=== PATIENT | female | born 1965 | race Caucasian/White ===

== ENCOUNTER → 2016-12-20 | Outpatient (CLI) | payer BC ==
[2014-08-19 19:12] VITALS: BP 156/72
[~2016-12-20] MED LIST: CYCL10TA2 PO; METH4TAB2 PO
--- NOTE | 2016-12-20 17:02 | KCIC ---
MR of the right ankle Indication: Right heel pain. Calcaneal fracture versus plantar fascial tear. Pain for 6 weeks after an injury.. Technique: Standard multiplanar sequences are obtained. Findings: Peroneal tendons: Intact, no dislocation Lateral ligaments: Anterior talofibular, calcaneofibular and posterior talofibular ligaments are intact. Tibiofibular syndesmosis:Intact. Medial tendons: Posterior tibial and flexor tendons are intact. Medial ligaments: No evidence of acute deltoid ligament tear Anterior tendons: Anterior tibial and extensor tendons are intact. Achilles tendon: Intact Plantar aponeurosis: Moderate thickening and increased signal within the central band of the calcaneal attachment. Minimal surrounding edema. No evidence of rupture or detachment. Subtalar joints: Patent Tarsal sinus: Intact Talar Dome: Intact Bones: No bone destruction or acute fracture. Fluid:No significant effusion. Joints: Mild subchondral cystic change and irregularity at the articulation of the navicular with the medial cuneiform compatible with localized degenerative change. Soft tissues: Unremarkable Impression: 1. Moderate plantar fasciitis. No evidence of aponeurotic rupture or detachment. 2. 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 Electronically signed by: Pietro Moss MD (12/20/2016 4:59 PM) [facility]
== END | disposition home or self-care (01) ==
LOC: KCIC MRI 15:41
PROVIDERS: ATTEND Orthopaedic Surgery Foot and Ankle Surgery
DX: M19.071 Primary osteoarthritis, right ankle and foot (principal); M72.2 Plantar fascial fibromatosis
CPT/HCPCS: 73721

== ENCOUNTER 2016-12-26 18:40 | Emergency (ER) | payer BC ==
[~2016-12-26] VITALS: Ht 165.1 cm; Wt 127.0 kg
[2016-12-26 21:40] LABS: BILIRUBIN,URINE NEGATIVE (NEG); GLUCOSE,URINE NEGATIVE (NEG); NITRITE,URINE NEGATIVE (NEG); PROTEIN,URINE NEGATIVE (NEG-TRACE); UROBILINOGEN,URINE 0.2 mg/dL (0.2 mg/dL)
[2016-12-26 21:45] LABS: BACTERIA,URINE 0 /HPF (0-FEW); RBC,URINE 0 /HPF (0-2); SQUAMOUS EPITHELIAL CELL,UR MOD /LPF; WBC,URINE 0 /HPF (0-4)
--- NOTE | 2016-12-26 21:54 | PHYS DOC ---
Past Medical History Past Medical History: Asthma Past Surgical History: Additional Past Surgical Histo: rotator cuff, abdominal tumor removed Alcohol Use: Rarely Drug Use: None Adult General Chief Complaint Chief Complaint: BACK PAIN - NO INJURY HPI HPI Patient is a 51 year old female who presents with complaint of right-sided back pain. Patient states that her pain is been worsening over the past 2 days. The patient states that she recently injured her right foot and has been in a walking boot for several weeks. Patient states she started developing pain along the right side of her back. Patient states that she also has noted pain radiating towards the front of her hip. Patient states that the pain worsens with movement. Patient denies any associated hematuria, dysuria, or fever. Patient states that she has had severe, 9 out of 10 pain which has caused nausea. The patient has been taking tramadol and hydrocodone at home for treatment of her pain but states that this is not been providing adequate control. The patient called her primary doctor who advised her to come to the emergency department to be evaluated as he wanted to make sure that she was not showing evidence of kidney stone. Patient denies any history of kidney stones. The patient states that her gait has been altered since she injured her foot and has had to wear the walking boot. Patient denies history of prior symptoms of back pain in the past. Patient denies loss of bowel or bladder control, saddle anesthesia, or foot drop. Review of Systems Review of Systems Constitutional: Denies fever or chills [] Eyes: Denies change in visual acuity, redness, or eye pain [] HENT: Denies nasal congestion or sore throat [] Respiratory: Denies cough or shortness of breath [] Cardiovascular: Denies chest pain or edema[] GI: Denies abdominal pain, nausea, vomiting, bloody stools or diarrhea [] : Denies dysuria or hematuria [] Musculoskeletal: Back pain[] Integument: Denies rash or skin lesions [] Neurologic: Denies headache, focal weakness or sensory changes [] Current Medications Current Medications Current Medications Medications (Trade) Dose Ordered Sig/Yulissa Start Time Stop Time Status Last Admin Dose Admin Oxycodone/ Acetaminophen (Percocet 7.5/ 325) 1 tab 1X ONCE 12/26/16 22:00 12/26/16 22:01 DC 12/26/16 21:35 1 TAB Allergies Allergies Allergies Coded Allergies Type Severity Reaction Last Updated Verified erythromycin base Allergy Intermediate Hives 08/19/14 Yes Physical Exam Physical Exam Constitutional: Alert, afebrile, appears in moderate discomfort. [] HENT: Normocephalic, atraumatic, bilateral external ears normal, oropharynx moist, no oral exudates, nose normal. [] Eyes: PERRLA, EOMI, conjunctiva normal, no discharge. [] Neck: Normal range of motion, no tenderness, supple, no stridor. [] Cardiovascular:Heart rate regular rhythm, no murmur [] Lungs & Thorax: Bilateral breath sounds clear to auscultation [] Abdomen: Bowel sounds normal, soft, no tenderness, no masses, no pulsatile masses. [] Skin: Warm, dry, no erythema, no rash. [] Back: No midline tenderness, right paraspinous muscle tenderness to palpation, no flank ecchymosis. [] Extremities: Right orthopedic walking boot, no cyanosis, no clubbing, ROM intact , no edema. [] Neurologic: Alert and oriented X 3, normal motor function, normal sensory function, no focal deficits noted. [] Current Patient Data Vital Signs Vital Signs Date Time Temp Pulse Resp B/P (MAP) Pulse Ox O2 Delivery O2 Flow Rate FiO2 12/26/16 22:14 66 18 161/70 (100) 96 Room Air 12/26/16 19:30 98.1 98.1 Lab Values Laboratory Tests Test 12/26/16 21:20 Urine Collection Type Unknown Urine Color Yellow Urine Clarity Clear Urine pH 6.0 Urine Specific [place] 1.015 Urine Protein Negative mg/dL (NEG-TRACE) Urine Glucose (UA) Negative mg/dL (NEG) Urine Ketones (Stick) Negative mg/dL (NEG) Urine Blood Negative (NEG) Urine Nitrite Negative (NEG) Urine Bilirubin Negative (NEG) Urine Urobilinogen Dipstick 0.2 mg/dL (0.2 mg/dL) Urine Leukocyte Esterase Negative (NEG) Urine RBC 0 /HPF (0-2) Urine WBC 0 /HPF (0-4) Urine Squamous Epithelial Cells Mod /LPF Urine Bacteria 0 /HPF (0-FEW) Urine Mucus Slight /LPF EKG EKG Not performed[] Radiology/Procedures Radiology/Procedures Not performed[] Course & Med Decision Making Course & Med Decision Making Pertinent Labs and Imaging studies reviewed. (See chart for details) Patient was given Percocet for treatment of pain. Patient's urine shows no evidence of hematuria. The patient's symptoms appear consistent with back strain. This is likely due to the [place] of altered gait as well as the patient's body habitus. Patient was given prescription for Flexeril and Medrol Dosepak for continued treatment of acute back pain. Recommended follow-up in the next 3 days with the patient's primary doctor for reevaluation and return to emergency department for any worsening symptoms. Patient voiced understanding and in agreement with treatment plan. Dragon Disclaimer Dragon Disclaimer This electronic medical record was generated, in whole or in part, using a voice recognition dictation system. Departure Departure Impression: Primary Impression: Low back strain Disposition: 01 HOME, SELF-CARE Condition: STABLE Referrals: AYAH RONQUILLO (PCP) Patient Instructions: Back Pain, Adult Additional Instructions: Follow-up he primary doctor in the next 3 days for reevaluation. Return to emergency department for any worsening symptoms. Scripts Methylprednisolone (MEDROL) 4 Mg Tab.ds.pk 1 PKG PO UD, #1 PKG Prov: PAUL MATAMOROS MD 12/26/16 Cyclobenzaprine Hcl (CYCLOBENZAPRINE HCL) 10 Mg Tablet 1 TAB PO QHS Y for MUSCLE PAIN, #15 TAB Prov: PAUL MATAMOROS MD 12/26/16 Problem Qualifiers Primary Impression: Low back strain Encounter type: initial encounter Qualified Codes: S39.012A - Strain of muscle, fascia and tendon of lower back, initial encounter PAUL MATAMOROS MD Dec 26, 2016 21:54
[2016-12-26] MEDS ORDERED: oxyCODONE/APAP 7.5/325 1 TAB TABLET PO ONE (22:00)
[2016-12-26 22:14] VITALS: BP 161/70
[2016-12-26] MEDS ORDERED: METH4TAB2 PO (22:17)
[2016-12-26] MEDS ORDERED: CYCL10TA2 PO (22:17)
== END 2016-12-26 22:45 | disposition home or self-care (01) ==
LOC: ER 18:40
DX: S39.012A Strain of muscle, fascia and tendon of lower back, initial encounter (principal); J45.909 Unspecified asthma, uncomplicated; Z88.1 Allergy status to other antibiotic agents; X58.XXXA Exposure to other specified factors, initial encounter; Y93.89 Activity, other specified; Y92.89 Other specified places as the place of occurrence of the external cause; Y99.8 Other external cause status
CPT/HCPCS: 81001; 99283

== ENCOUNTER → 2017-01-22 | Outpatient (CLI) | payer BC ==
[2016-12-26 22:14] VITALS: BP 161/70
--- NOTE | 2017-01-22 14:35 | KCIC ---
MRI of the lumbar spine without contrast 01/22/2017 CLINICAL HISTORY: Low back pain which radiates down the right leg for 3 weeks. TECHNIQUE: Unenhanced T1-weighted and T2-weighted sagittal and axial and inversion recovery sagittal images of the lumbar spine were obtained. FINDINGS: Minimal S-shaped curvature of the thoracolumbar spine is seen. Degenerative signal changes are seen involving the L4-5 disc. A 9 mm hemangioma is seen involving the L4 vertebral body. The conus medullaris is normal morphology, position, and signal characteristics. At the L1-2, L2-3 and L3-4 disc spaces there are minimal generalized disc bulges. Degenerative changes are seen involving the facet joints bilaterally. There is mild ligamentum flavum hypertrophy bilaterally. These findings do not result in significant central spinal canal or neural foraminal stenosis. At the L4-5 disc space there is a mild generalized disc bulge. Superimposed on this disc bulge is a central/right paracentral focal disc protrusion. This measures 3 mm in AP diameter degenerative changes are seen involving the facet joints bilaterally. There is mild to moderate ligamentum flavum hypertrophy bilaterally. These findings when combined result in mild right greater than left central spinal canal stenosis. No neural foraminal stenosis is seen. At the L5-S1 disc space there is a minimal generalized disc bulge. Degenerative changes are seen involving the facet joints bilaterally. These findings do not result in significant central spinal canal or neural foraminal stenosis. IMPRESSION: The changes of degenerative disc disease are seen involving the lumbar spine. These findings result in mild right greater than left central spinal canal stenosis at L4-5. No neural foraminal stenosis is seen. Electronically signed by: Ryne Roque MD (01/22/2017 2:32 PM) [facility]
== END | disposition home or self-care (01) ==
LOC: KCIC MRI 13:07
PROVIDERS: ATTEND Physical Medicine & Rehabilitation
DX: M48.061 Spinal stenosis, lumbar region without neurogenic claudication (principal); M54.31 Sciatica, right side; M51.36 Other intervertebral disc degeneration, lumbar region
CPT/HCPCS: 72148

== ENCOUNTER → 2017-01-23 | Outpatient (CLI) | payer BC ==
[2016-12-26 22:14] VITALS: BP 161/70
--- NOTE | 2017-01-23 13:29 | RAD ---
EXAM: Triple phase bone scintigraphy. HISTORY: Persistent right foot pain and swelling after a fall. COMPARISON: 12/20/2016. FINDINGS: 25.0 mCi technetium 99m MDP was administered intravenously. Scintigraphic images of the feet were obtained in angiographic, immediate and delayed phases. Angiographic images demonstrate slightly increased perfusion to the right foot in comparison with the left. This appears to localize most severely to the plantar fascia on the immediate images. Focal uptake at the right greater than left 1st metatarsophalangeal joints is likely from osteoarthritis. Focal uptake is seen more proximally within the right mid foot/hindfoot, likely reflecting navicular-medial cuneiform osteoarthritis. The uptake at the left talonavicular joint is likely also from tarsometatarsal osteoarthritis. There is no intense focal uptake suggesting a fracture or stress lesion. IMPRESSION: 1. Increased perfusion throughout the left foot, with increased blood pool along the plantar fascia. These findings are consistent with plantar fasciitis. Also correlate to exclude complex regional pain syndrome. 2. Multifocal osteoarthritis as above. No clear fracture or stress lesion.
== END | disposition home or self-care (01) ==
LOC: NM 07:53
PROVIDERS: ATTEND Orthopaedic Surgery Foot and Ankle Surgery
DX: S90.31XA Contusion of right foot, initial encounter (principal); M72.2 Plantar fascial fibromatosis; M19.071 Primary osteoarthritis, right ankle and foot; J45.909 Unspecified asthma, uncomplicated; X58.XXXA Exposure to other specified factors, initial encounter; Y92.89 Other specified places as the place of occurrence of the external cause; Y93.89 Activity, other specified; Y99.8 Other external cause status
CPT/HCPCS: 78315; 96374; A9503

== ENCOUNTER → 2017-03-14 | Outpatient (CLI) | payer BC | END | disposition home or self-care (01) | LOC: KCIC MAMMO 15:47 | DX: Z12.31 Encounter for screening mammogram for malignant neoplasm of breast (principal) | CPT/HCPCS: G0202 ==